=== PATIENT | female | born 1990 | race Caucasian/White ===

== ENCOUNTER 2018-04-29 21:40 | Emergency (ER) | payer BC ==
[2018-04-29] MEDS ORDERED: ORPHENADRINE CITRATE 60MG/2ML VIAL IM ONE (22:08)
[2018-04-29] MEDS ORDERED: HYDROCODONE/APAP 7.5/325MG TABLET PO ONE (22:08)
--- NOTE | 2018-04-29 22:15 | Emergency Department Record ---
History of Present Illness - General Chief complaint: Pain Stated complaint: INJURY TO SHOULDER AND HAND Time Seen by Provider: 04/29/18 22:07 Source: Patient Mode of Arrival: Wheelchair Limitations: No limitations - History of Present Illness Initial comments: 27 yo female presents with left shoulder pain for two days. 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 She has had increased left shoulder pain since then. No other injuries. She denies fever, chills, recent illness, or any other current issues. She took Motrin this morning without relief. MD Complaint: Joint pain Onset/Timin -: Days(s) (2) Location: Left, Hand, Shoulder -: Yes Arthralgia (Left shoulder) Severity scale (1-10): 10 Quality: Aching, Stabbing Consistency: Constant Improves with: Immobilization Worsens with: Exertion - Related Data Home Medications Medication Instructions Recorded Confirmed Last Taken Dextroamphetamine/Amphetamine 20 mg PO DAILY 04/29/18 04/29/18 Unknown [Adderall Xr 20 mg Capsule] Sertraline HCl [Zoloft] 50 mg PO BID 04/29/18 04/29/18 Unknown Previous Rx's Medication Instructions Recorded Cyclobenzaprine HCl [Flexeril] 10 mg PO TID #15 tablet 04/29/18 Naproxen [Naprosyn] 500 mg PO Q12HR #15 tablet 04/29/18 Allergies Allergy/AdvReac Type Severity Reaction Status Date / Time cefixime [From Suprax] Allergy ANAPHYLAXIS Verified 04/29/18 21:48 codeine Allergy RASH Verified 04/29/18 21:50 Travel Screening - Travel/Exposure Within Last 30 Days Have you traveled within the last 30 days?: No - Travel Symptoms Symptom Screening: None Review of Systems Constitutional: Denies: Chills, Fever, Malaise, Weakness Eyes: Denies: Eye discharge ENT: Denies: Congestion, Throat pain Respiratory: Denies: Cough, Dyspnea Cardiovascular: Denies: Chest pain, Palpitations, Syncope Endocrine: Denies: Fatigue Gastrointestinal: Denies: Abdominal pain, Diarrhea, Nausea, Vomiting Genitourinary: Denies: Dysuria Musculoskeletal: Reports: As per HPI, Arthralgia. Denies: Back pain, Joint swelling, Myalgia Skin: Denies: Bruising, Change in color, Rash Neurological: Denies: Confusion, Headache, Numbness, Weakness Psychiatric: Denies: Anxiety Hematological/Lymphatic: Denies: Blood Clots, Easy bleeding, Easy bruising, Swollen glands Past Medical History - SOCIAL HISTORY Smoking Status: Current every day smoker - RESPIRATORY Hx Respiratory Disorders: No - CARDIOVASCULAR Hx Cardio Disorders: No - NEURO Hx Neuro Disorders: No - GI Hx GI Disorders: No - Hx Genitourinary Disorders: Yes Comment:: Polycystic Ovaries; Endometriosis - ENDOCRINE Hx Endocrine Disorders: No - MUSCULOSKELETAL Hx Musculoskeletal Disorders: No - PSYCH Hx Psych Problems: Yes Hx Anxiety: Yes Comment:: ADHD - HEMATOLOGY/ONCOLOGY Hx Hematology/Oncology Disorders: Yes Hx Cancer: Yes Hx Chemotherapy: No Hx Radiation Therapy: No Family Medical History Any Significant Family History?: Yes Family Hx Comment (NOT TO BE USED IN PLACE OF ITEMS BELOW): Dad w/schizophrenia ; Mom/Bipolar Hx Cancer: Grandparents Hx Resp Disorders: Grandparents Physical Exam - General General Appearance: Alert, Oriented x3, Cooperative, No acute distress Limitations: No limitations - Head Head exam: Atraumatic, Normocephalic, Normal inspection - Eye Eye exam: Normal appearance. negative: Conjunctival injection - ENT ENT exam: Normal exam Ear exam: Normal external inspection Nasal Exam: Normal inspection Mouth exam: Normal external inspection - Neck Neck exam: Normal inspection, Full ROM. negative: Tenderness - Respiratory Respiratory exam: Normal lung sounds bilaterally. negative: Respiratory distress - Cardiovascular Cardiovascular Exam: Tachycardia Peripheral Pulses: 2+: Radial (L) - Extremities Extremities exam: Normal inspection, Normal capillary refill (brisk finger cap refill, brown cigarette stains on fingers, no hand swelling), Tenderness, Other (Normal shoulder inspection, no abnormal warmth or redness, she is tender in the anterior superior shoulder, she has full internal rotation, some pain with external rotation, pain greatest with abduction). negative: Full ROM, Joint swelling - Back Back exam: Reports: Normal inspection - Neurological Neurological exam: Alert, Normal gait, Oriented X3. 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 Pain greatest with abduction She has good ROM but pain noted with ROM No clinical signs of dislocation on examination 04/29/18 22:59 The preliminary XR appears normal without obvious bony abnormality, fracture or dislocation The patient was informed of the preliminary results I explained that if any changes are on the final read she would be notified Given her examination I explained she may need further work up with MRI to evaluate for soft tissue, ligament, tendon injury. I explained that [facility] does not have MRI available She is to call her PCP for an outpatient MRI if warranted. 04/29/18 23:10 04/29/18 23:14 Final XR read was negative for acute process by the radiologist 04/30/18 00:30 Addendum: As the patient was leaving she stated she was going to go the [facility] for evaluation. I informed her she was currently a discharge from this ED and not a transfer. Given her shoulder pain occurred from the trauma of her falling on her I recommended calling her PCP for an outpatient MRI. I explained I can not guarantee what, if any additional testing [facility] would perform. She stated she was aware that [facility] has MRI and orthopedics and she was going there now since [facility] is a small critical access hospital that does not have those options for her at this time. I informed her I would call [facility] ED to inform them of her intentions but this was not a transfer at this time. She thanked me for my care in the ED and I sent with her with a copy of the XR in case she did present to another hospital. I did call [facility] ED and spoke with the in take physician informing her of the patient's plan to present for evaluation at [facility] ED. The call was placed through [facility]. Disposition Disposition: Discharge Clinical Impression: Sprain of shoulder, left Qualifiers: Encounter type: initial encounter Shoulder sprain type: unspecified sprain Qualified Code(s): S43.402A - Unspecified sprain of left shoulder joint, initial encounter Disposition: Home, Self-Care Condition: (1) Good Instructions: Shoulder Sprain (ED) Additional Instructions: Use the sling only for support and comfort Call your doctor first of the week if the pain continues You may need further work up with possible MRI if the pain continues Prescriptions: Naproxen [Naprosyn] 500 mg PO Q12HR #15 tablet Cyclobenzaprine HCl [Flexeril] 10 mg PO TID #15 tablet Forms: Patient Portal Access Time of Disposition: 23:08 Quality - Quality Measures Quality Measures: N/A - Blood Pressure Screening Does Patient Have Any of the Following: No Blood Pressure Classification: Hypertensive Reading Systolic Measurement: 176 Diastolic Measurement: 98 Screening for High Blood Pressure: < Pre-Hypertensive BP, F/U Documented > [ [id number]] Pre-Hypertensive Follow-up Interventions: Referral to alternative/primary care provider.
[2018-04-29] MEDS ORDERED: ONDANSETRON 4 MG ODT TABLET SL ONE (22:46)
--- NOTE | 2018-05-01 12:28 | RADIOLOGY REPORT ---
EXAM: LEFT SHOULDER HISTORY: PATIENT INJURED TWO DAYS AGO WITH LEFT SHOULDER PAIN. TECHNIQUE: Three views of the left shoulder were obtained. Comparison: None. Encounter: Initial. FINDINGS: The left shoulder appears intact with no definite fracture or dislocation identified. IMPRESSION: THE LEFT SHOULDER APPEARS NEGATIVE WITH NO DEFINITE FRACTURE IDENTIFIED. JOB NUMBER: [id number] MTDD
== END 2018-04-29 23:24 | disposition home or self-care (01) ==
LOC: ER 21:40
DX: S43.402A Unspecified sprain of left shoulder joint, initial encounter (principal); M79.642 Pain in left hand; W50.0XXA Accidental hit or strike by another person, initial encounter; Y93.F9 Activity, other caregiving; F17.210 Nicotine dependence, cigarettes, uncomplicated
CPT/HCPCS: 96372; 99283; 99284; J2360